=== PATIENT | male | born 1950 | race Caucasian/White ===

== ENCOUNTER 2016-12-12 10:22 | Emergency (ER) | payer OTHER ==
[~2016-12-12] VITALS: Ht 185.4 cm; Wt 78.0 kg
[~2016-12-12 10:22] MED LIST: ALBU2.5I INH; ALBU8I INH; BACL20TA PO; CEPH500C3 PO; CYCL1PAK PO; DICL50 PO; GABA300C3 PO; HYDR50 PO; PROT40TA PO; SERT100 PO; ULTR50TA PO
[2016-12-12] MEDS ORDERED: SODIUM CHLOR 0.9% 1000 ML INJ 1,000 ML IV SCH (10:36)
[2016-12-12] MEDS ORDERED: SODIUM CHLORIDE 0.9% FLUSH 10 ML FLUSH IVF PRN (10:45)
[2016-12-12] MEDS ORDERED: NALOXONE HCL 0.4 MG/ML AMP IV PUSH PRN (10:45)
[2016-12-12 10:49] VITALS: BP 128/62; PULSE 75; RESP 12; TEMP 98.5; O2SAT 91
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
[2016-12-12 11:19] VITALS: BP 121/62; PULSE 63; RESP 14; O2SAT 98
--- NOTE | 2016-12-12 12:23 | RADRPT ---
EXAM DATE/TIME: 12/12/2016 12:09 [place] COMPARISON: CT BRAIN W/O CONTRAST, August 22, 2016, 16:05. INDICATIONS : Altered mental status today. RADIATION DOSE: 35.80 CTDIvol (mGy) MEDICAL HISTORY : Hepatitis C. SURGICAL HISTORY : unobtainable ENCOUNTER: Initial ACUITY: 1 day PAIN SCALE: Non-responsive LOCATION: Bilateral head TECHNIQUE: Multiple contiguous axial images were obtained of the head. Using automated exposure control and adj ustment of the mA and/or kV according to patient size, radiation dose was kept as low as reasonably a chievable to obtain optimal diagnostic quality images. FINDINGS: The examination demonstrates encephalomalacic changes involving the frontal lobes bilaterally. There are fairly extensive postsurgical changes within the frontal bone itself. The ventricles are normal in size and configuration. No acute intracranial hemorrhage is seen. The ap pearance of the posterior fossa is unremarkable. No mass lesion is identified. CONCLUSION: 1. There are posttraumatic changes within the frontal lobes bilaterally. There is atrophy and encepha lomalacia. These changes are old and stable compared to previous dated 08/22/16. 2. Extensive postsurgical changes involving the frontal bone. Harley Landrum MD on December 12, 2016 at 12:18 Board Certified Radiologist. This report was verified electronically.
[2016-12-12 12:28] LABS: AUTOMATED NEUTROPHIL # 2.3 TH/MM3 (1.8-7.7); BASOPHIL # 0.1 TH/MM3 (0-0.2); BASOPHIL % 1.3 % (0.0-2.0); EOSINOPHIL # 0.1 TH/MM3 (0-0.4); HEMO FLAGS DIFF FINAL; LYMPH % 41.8 % (9.0-44.0); LYMPHOCYTE # 2.3 TH/MM3 (1.0-4.8); MEAN CELL VOLUME 88.7 FL (80.0-100.0); MEAN CORPUSCULAR HEMOGLOBIN 29.8 PG (27.0-34.0); MEAN CORPUSCULAR HGB CONC 33.5 % (32.0-36.0); MONO % 12.8 % (0.0-8.0); NEUT % 42.1 % (16.0-70.0); PLATELET COUNT 170 TH/MM3 (150-450); RED BLOOD COUNT 5.29 MIL/MM3 (4.50-5.90); RED CELL DISTRIBUTION WIDTH 13.3 % (11.6-17.2); WHITE BLOOD COUNT 5.5 TH/MM3 (4.0-11.0)
[2016-12-12 12:37] VITALS: BP 90/53; PULSE 59; RESP 15; O2SAT 97
[2016-12-12] MEDS ORDERED: BACL20TA PO (12:44)
[2016-12-12] MEDS ORDERED: ULTR50TA5 PO (12:44)
[2016-12-12] MEDS ORDERED: CYCL1TAB29 PO (12:44)
[2016-12-12] MEDS ORDERED: ALBU0.08 NEB (12:44)
[2016-12-12] MEDS ORDERED: PROT40TA PO (12:44)
[2016-12-12] MEDS ORDERED: ALBUAER3 INH (12:44)
[2016-12-12] MEDS ORDERED: VIST50CA PO (12:44)
[2016-12-12] MEDS ORDERED: GABA300C5 PO (12:44)
[2016-12-12] MEDS ORDERED: ZOLO100T PO (12:44)
[2016-12-12] MEDS ORDERED: voltaren (12:44)
[2016-12-12] MEDS ORDERED: SODIUM CHLOR 0.9% 1000 ML INJ 1,000 ML IV ONE (12:45)
[2016-12-12 13:23] LABS: BLOOD, URINE NEG (NEG); COMMENT (UR) CATH-CULT NOT IND; CULTURE IF INDICATED CATH CULTURE NOT IND; GLUCOSE,URINE NEG (NEG); GRANULAR CAST, URINE 2 /lpf; HYALINE CAST, URINE 5 /lpf (RARE); KETONE, URINE NEG (NEG); NITRITE,URINE NEG (NEG); PH, URINE 6.5 (5.0-8.5); SQUAMOUS EPITHELIAL CELL URINE <1 /hpf (0-5); URINE COLOR YELLOW (YELLW/STRAW)
[2016-12-12 13:31] LABS: AMPHETAMINE, URINE NEG (NEG); BARBITURATES, URINE NEG (NEG); COCAINE, URINE POS (NEG)
[2016-12-12 13:47] LABS: ANION GAP 8 MEQ/L (5-15)
[2016-12-12 13:51] LABS: ACETAMINOPHEN LESS THAN 2.0 MCG/ML (10.0-30.0); ALKALINE PHOSPHATASE 62 U/L (45-117); ALT (GPT) 33 U/L (12-78); AST (GOT) 43 U/L (15-37); BICARBONATE 30.1 MEQ/L (21.0-32.0); BLOOD UREA NITROGEN 13 MG/DL (7-18); CHLORIDE 104 MEQ/L (98-107); CREATINE KINASE 145 U/L (39-308); GLOMERULAR FILTRATION RATE 67 ML/MIN (>89); POTASSIUM 4.7 MEQ/L (3.5-5.1); SODIUM (NA) 142 MEQ/L (136-145); TOTAL BILIRUBIN ADULT 0.4 MG/DL (0.2-1.0)
[2016-12-12 14:12] VITALS: BP 106/69; PULSE 62; RESP 16; O2SAT 95
[2016-12-12] MEDS ORDERED: CEPH-460 PO (14:13)
[2016-12-12 14:49] VITALS: BP 106/69; TEMP 98.3
--- NOTE | 2016-12-13 10:18 | EKG ---
Date Performed: 12/12/2016 Time Performed: 11:40:02 PTAGE: 66 years EKG: SINUS BRADYCARDIA WITH MARKED SINUS ARRHYTHMIA Compared to previous tracing, the patient is now bradycardic. BORDERLINE ECG PREVIOUS TRACING : 08/22/2016 15.02 DOCTOR: Debbie Bazzi Interpretating Date/Time 12/13/2016 10:17:16
[2016-12-13] MEDS ORDERED: DICL50TA3 PO (10:52)
== END 2016-12-12 15:17 | disposition home or self-care (01) ==
LOC: NEPA 10:22
DX: F19.10 Other psychoactive substance abuse, uncomplicated (principal); R00.1 Bradycardia, unspecified; B19.20 Unspecified viral hepatitis C without hepatic coma; Z79.899 Other long term (current) drug therapy
CPT/HCPCS: 70450; 80053; 80307; 81001; 82550; 83605; 84484; 85025; 87040; 93005; 96374; 99285; J2310; J7030; P9612

== ENCOUNTER 2017-06-04 10:21 | Emergency (ER) | payer OTHER ==
[~2017-06-04] VITALS: Ht 185.4 cm; Wt 79.0 kg
[~2017-06-04 10:21] MED LIST changes: +ALBU0.08 NEB; -ALBU2.5I INH; -ALBU8I INH; +ALBUAER3 INH; +CEPH-460 PO; -CEPH500C3 PO; -CYCL1PAK PO; +CYCL1TAB29 PO; -DICL50 PO; +DICL50TA3 PO; -GABA300C3 PO; +GABA300C5 PO; -HYDR50 PO; -SERT100 PO; -ULTR50TA PO; +ULTR50TA5 PO; +VIST50CA PO; +ZOLO100T PO
[2017-06-04 10:30] VITALS: BP 93/55; PULSE 96; RESP 24; TEMP 100.6; O2SAT 96
== END 2017-06-04 12:29 | disposition left against medical advice (07) ==
LOC: NEDAMB 10:21
DX: R53.81 Other malaise (principal)
CPT/HCPCS: 99281

== ENCOUNTER 2018-02-16 16:25 | Emergency (ER) | payer MEDICARE, OTHER ==
[~2018-02-16] VITALS: Ht 185.4 cm; Wt 67.0 kg
[~2018-02-16 16:25] MED LIST changes: +CYCL10TA PO; -CYCL1TAB29 PO; +TRAM50 PO; -ULTR50TA5 PO
[2018-02-16 16:42] VITALS: BP 119/64; PULSE 65; RESP 17; TEMP 97.8; O2SAT 96
--- NOTE | 2018-02-16 17:18 | PD ---
HPI Chief Complaint: General Weakness Time Seen by Provider: 16:57 Travel History International Travel<30 days: No Contact w/Intl Traveler<30days: No Traveled to known affect area: No History of Present Illness HPI 67-year-old male complains of unsteady gait. Patient states that symptoms started several months ago. Patient states that he has intermittent unsteady gait for the past 2 months. Patient denies any headache. Patient denies any visual change. Patient denies any neck pain. Patient denies any chest pain or shortness of breath. Patient denies abdominal pain. Patient denies any focal weakness or numbness of the extremity. Patient states that he had abused IV Dilaudid occasionally. Patient denies any alcohol problem. Patient denies any coughing congestion fever chills. Patient denies any nausea vomiting diarrhea. Patient has history of TBI about 2 years ago. Patient status post bifrontal craniotomy, ORIF of facial fracture. Patient states that he has MRI performed subsequently without any problem. Patient also has history anxiety, GERD, left ear hearing impaired, hyperlipidemia, COPD, depression, hepatitis C and sleep apnea. Patient was seen at [facility] today and transferred to [place] by EMS for evaluation of unsteady gait. 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) Endocrine: No GERD: Yes Genitourinary: No Headaches: Yes Hepatitis: Yes (per hx...HEP C) Hiatal Hernia: No Hypertension: No Immune Disorder: No Implanted Vascular Access Dvce: No Kidney Stones: Yes Neurologic: No Reproductive: No Respiratory: No Migraines: No Myocardial Infarction: No Radiation Therapy: No Renal Failure: No Seizures: No Sickle Cell Disease: No Sleep Apnea: Yes Thyroid Disease: No Ulcer: No Influenza Vaccination: Yes Past Surgical History Abdominal Surgery: No AICD: No Arteriovenous Shunt: No Cardiac Surgery: No Ear Surgery: No Endocrine Surgery: Yes (per hx..TONSIL AND ADNOID) Eye Surgery: No Genitourinary Surgery: No Gynecologic Surgery: No Insulin Pump: No Joint Replacement: No Neurologic Surgery: Yes (per hx..ANTERIOR CERV FUSION ) Oral Surgery: No Pacemaker: No Thoracic Surgery: No Tonsillectomy: Yes (per hx..AND ADENIODS) Other Surgery: Yes (plate in forehead) Social History Alcohol Use: Yes (history of alcohol abuse) Tobacco Use: Yes (2 PPD) Substance Use: Yes (DILauDID iv) Allergies-Medications (Allergen,Severity, Reaction): Coded Allergies: ibuprofen (Unverified Allergy, Severe, UNKNOWN, 02/16/18) CAN TAKE TYLENOL Reported Meds & Prescriptions Reported Meds & Active Scripts Active Reported Diclofenac Sodium DR (Diclofenac Sodium) 50 Mg Tabdr 50 Mg PO BID Ultram (Tramadol HCl) 50 Mg Tab 50 Mg PO TID PRN Zoloft (Sertraline HCl) 100 Mg Tab 100 Mg PO HS Vistaril (Hydroxyzine Pamoate) 50 Mg Cap 50 Mg PO HS Gabapentin 300 Mg Cap 300 Mg PO TID Flexeril (Cyclobenzaprine HCl) 10 Mg Tab 10 Mg PO BID Baclofen 20 Mg Tab 20 Mg PO BID Albuterol Neb (Albuterol Sulfate) 2.5 Mg/3 Ml Neb 2.5 Mg NEB Q4HR NEB While awake Proair Hfa 8.5 GM Inh (Albuterol Sulfate) 90 Mcg/Act Aer 1 Puff INH Q4H PRN 108 mcg/actuation Physical Exam Narrative GENERAL: Well-nourished, well-developed patient. SKIN: Focused skin assessment warm/dry. HEAD: Chronic deformity of the forehead. EYES: No scleral icterus. No injection or drainage. Pupils 2 mm equal reactive. NECK: Supple, trachea midline. No JVD or lymphadenopathy. No meningismus. CARDIOVASCULAR: Regular rate and rhythm without murmurs, gallops, or rubs. RESPIRATORY: Breath sounds equal bilaterally. No accessory muscle use. GASTROINTESTINAL: Abdomen soft, non-tender, nondistended. MUSCULOSKELETAL: No cyanosis, or edema. BACK: Nontender without obvious deformity. No CVA tenderness. Neurologic exam: Patient is awake and alert oriented 3. No obvious focal neurological deficit. Data Data Last Documented VS Vital Signs Date Time Temp Pulse Resp B/P (MAP) Pulse Ox O2 Delivery O2 Flow Rate FiO2 02/16/18 19:02 70 18 109/69 (82) 98 Room Air 02/16/18 16:42 97.8 Orders Orders Complete Blood Count With Diff (02/16/18 17:04) Comprehensive Metabolic Panel (02/16/18 17:04) Urinalysis - C+S If Indicated (02/16/18 17:04) Thyroid Stimulating Hormone (02/16/18 17:04) Iv Access Insert/Monitor (02/16/18 17:04) Ecg Monitoring (02/16/18 17:04) Oximetry (02/16/18 17:04) Drug Screen, Random Urine (02/16/18 17:04) Alcohol (Ethanol) (02/16/18 17:04) Ct Brain W/O Iv Contrast(Rout) (02/16/18 17:20) Labs Laboratory Tests Test 02/16/18 16:55 02/16/18 18:20 White Blood Count 5.4 TH/MM3 Red Blood Count 4.92 MIL/MM3 Hemoglobin 15.0 GM/DL Hematocrit 43.1 % Mean Corpuscular Volume 87.6 FL Mean Corpuscular Hemoglobin 30.5 PG Mean Corpuscular Hemoglobin Concent 34.9 % Red Cell Distribution Width 13.8 % Platelet Count 200 TH/MM3 Mean Platelet Volume 7.9 FL Neutrophils (%) (Auto) 58.5 % Lymphocytes (%) (Auto) 30.5 % Monocytes (%) (Auto) 8.3 % Eosinophils (%) (Auto) 1.8 % Basophils (%) (Auto) 0.9 % Neutrophils # (Auto) 3.1 TH/MM3 Lymphocytes # (Auto) 1.6 TH/MM3 Monocytes # (Auto) 0.4 TH/MM3 Eosinophils # (Auto) 0.1 TH/MM3 Basophils # (Auto) 0.1 TH/MM3 CBC Comment DIFF FINAL Differential Comment Blood Urea Nitrogen 16 MG/DL Creatinine 1.19 MG/DL Random Glucose 89 MG/DL Total Protein 7.6 GM/DL Albumin 3.3 GM/DL Calcium Level 8.9 MG/DL Alkaline Phosphatase 61 U/L Aspartate Amino Transf (AST/SGOT) 34 U/L Alanine Aminotransferase (ALT/SGPT) 27 U/L Total Bilirubin 0.5 MG/DL Sodium Level 143 MEQ/L Potassium Level 4.0 MEQ/L Chloride Level 106 MEQ/L Carbon Dioxide Level 29.4 MEQ/L Anion Gap 8 MEQ/L Estimat Glomerular Filtration Rate 61 ML/MIN Thyroid Stimulating Hormone 3rd Gen 0.388 uIU/ML Ethyl Alcohol Level LESS THAN 3 MG/DL Urine Color DARK-YELLOW Urine Turbidity CLEAR Urine pH 6.5 Urine Specific [place] 1.030 Urine Protein 30 mg/dL Urine Glucose (UA) NEG mg/dL Urine Ketones NEG mg/dL Urine Occult Blood NEG Urine Nitrite NEG Urine Bilirubin NEG Urine Urobilinogen 4.0 MG/DL Urine Leukocyte Esterase TRACE Urine WBC LESS THAN 1 /hpf Urine Hyaline Casts 10 /lpf Urine Mucus MANY /lpf Microscopic Urinalysis Comment CULT NOT INDICATED Urine Opiates Screen NEG Urine Barbiturates Screen NEG Urine Amphetamines Screen POS Urine Benzodiazepines Screen NEG Urine Cocaine Screen POS Urine Cannabinoids Screen NEG MDM Medical Decision Making Medical Screen Exam Complete: Yes Emergency Medical Condition: Yes Medical Record Reviewed: Yes Interpretation(s) Last Impressions Head CT 02/16/18 1720 Signed Impressions: CONCLUSION: 1. No acute abnormality or change is seen. 2. Dilatation the ventricles which is unchanged from the prior exam. 3. Encephalomalacia at the frontal lobes bilaterally. 4. There is postoperative change seen over the frontal lobes in the orbits. 1955 PM. CBC within normal limits. CMP within normal limits. TSH normal. Alcohol less than 3. UA is negative. Differential Diagnosis Differential diagnosis including side effect of medications, substance abuse, dehydration, electrolyte imbalance, TIA, CVA. Narrative Course 67-year-old male with history of TBI complains of unsteady gait for the past several months. Patient was seen at the [facility] today and transferred to [facility] for evaluation by EMS. Diagnosis Primary Impression: Polysubstance abuse Patient Instructions: General Instructions Additional Instructions: Advised [facility]. Follow-up with personal physician. Return as needed. Med/Other Pt SpecificInfo: No Change to Meds Disposition: 01 DISCHARGE HOME Condition: Stable Pino Mata MD Feb 16, 2018 17:18
[2018-02-16 17:31] LABS: AUTOMATED NEUTROPHIL # 3.1 TH/MM3 (1.8-7.7); BASOPHIL # 0.1 TH/MM3 (0-0.2); BASOPHIL % 0.9 % (0.0-2.0); EOSINOPHIL # 0.1 TH/MM3 (0-0.4); EOSINOPHIL % 1.8 % (0.0-4.0); HEMATOCRIT 43.1 % (39.0-51.0); LYMPH % 30.5 % (9.0-44.0); LYMPHOCYTE # 1.6 TH/MM3 (1.0-4.8); MEAN CELL VOLUME 87.6 FL (80.0-100.0); MEAN CORPUSCULAR HEMOGLOBIN 30.5 PG (27.0-34.0); MEAN CORPUSCULAR HGB CONC 34.9 % (32.0-36.0); MEAN PLATELET VOLUME 7.9 FL (7.0-11.0); MONO % 8.3 % (0.0-8.0); MONOCYTE # 0.4 TH/MM3 (0-0.9); NEUT % 58.5 % (16.0-70.0); PLATELET COUNT 200 TH/MM3 (150-450); RED BLOOD COUNT 4.92 MIL/MM3 (4.50-5.90); RED CELL DISTRIBUTION WIDTH 13.8 % (11.6-17.2); WHITE BLOOD COUNT 5.4 TH/MM3 (4.0-11.0)
[2018-02-16 17:50] LABS: ALT (GPT) 27 U/L (12-78)
[2018-02-16 18:00] LABS: ALKALINE PHOSPHATASE 61 U/L (45-117); TOTAL BILIRUBIN ADULT 0.5 MG/DL (0.2-1.0); TOTAL PROTEIN 7.6 GM/DL (6.4-8.2)
[2018-02-16 18:02] LABS: ALBUMIN 3.3 GM/DL (3.4-5.0); AST (GOT) 34 U/L (15-37); BICARBONATE 29.4 MEQ/L (21.0-32.0); BLOOD UREA NITROGEN 16 MG/DL (7-18); CALCIUM 8.9 MG/DL (8.5-10.1); CHLORIDE 106 MEQ/L (98-107); CREATININE 1.19 MG/DL (0.60-1.30); GLOMERULAR FILTRATION RATE 61 ML/MIN (>89); GLUCOSE,RANDOM 89 MG/DL (74-106); SODIUM (NA) 143 MEQ/L (136-145)
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
[2018-02-16 18:56] LABS: BILIRUBIN, URINE NEG (NEG); BLOOD, URINE NEG (NEG); GLUCOSE,URINE NEG (NEG); HYALINE CAST, URINE 10 /lpf (RARE); KETONE, URINE NEG (NEG); MUCUS URINE MANY /lpf (OCC); NITRITE,URINE NEG (NEG); PH, URINE 6.5 (5.0-8.5); URINE COLOR DARK-YELLOW (YELLW/STRAW); URINE LEUKOCYTE ESTERASE TRACE (NEG)
[2018-02-16 19:02] VITALS: BP 109/69; PULSE 70; RESP 18; O2SAT 98
== END 2018-02-16 22:17 | disposition home or self-care (01) ==
LOC: NEPD 16:25
DX: F19.10 Other psychoactive substance abuse, uncomplicated (principal); F17.200 Nicotine dependence, unspecified, uncomplicated; Z79.899 Other long term (current) drug therapy
CPT/HCPCS: 70450; 80053; 80307; 81001; 84443; 85025; 99284